=== PATIENT | male | born 1955 | race African-American/Black ===

== ENCOUNTER → 2016-11-08 | Outpatient (CLI) | payer OTHER ==
[~2016-11-08] MED LIST: ALBUTEROL17 GM INH; ASPIRIN PO; BENZONATATE PO; CIPRO PO; DIAZEPAM PO; DOXYCYCLINE HY100 M3 PO; DOXYCYCLINE PO; FLEXERIL PO; FLEXERIL10 M1 PO; FLEXERIL10 MG PO; HCTZ PO; IBUPROFEN PO; IBUPROFEN800 MG PO; KCL PO; LASIX20 MG PO; LISINOPRIL PO; LORTAB 10-5001 EACH PO; LORTAB 5/500 TA1 TA1 PO; MEDROL PO; METFORMIN PO; NEURONTIN300 MG PO; NORCO 10/325 TA1 TAB PO; NORMODYNE PO; NORVASC PO; PREDNISONE PO; PROZAC PO; ROBAXIN500 MG PO; ROBITUSSIN A-C S5 ML PO; VOLTAREN75 MG PO; ZANTAC PO
--- NOTE | ~2016-11-08 | US5 ---
[facility] A Service of [facility] & [facility] RADIOLOGY TEXT RESULTS PATIENT: GERTRUDIS RAI LOCATION: [facility] : 57 UNIT #: [id number] AGE: [address]: Piyush Lyles MD SEX: M ORDER DR: [id number] [facility] [address] [place], [place] [address] [id number] O MR#: [id number] #: [id number] NAME: GERTRUDIS RAI : 1955 SEX: M STUDY DATE/TIME: 11/08/2016 9:53 UNIT: [facility] ROOM: STUDY DESCRIPTION: US Abdominal Complete Attending Physician: Piyush Lyles III, M.D. Referring Physician: Piyush Lyles III, M.D. Ordering Physician: Piyush Lyles III, M.D. Primary Care Physician: Dagoberto Rivera M.D. MEDICAL IMAGING REPORT This report is preliminary unless electronic signature is present EXAM Abdominal ultrasound. INDICATIONS Hepatitis B and hepatitis C. Patient reports abdominal pain for 3 years. This is located bilaterally. TECHNIQUE [place]enport-scale, color Doppler and spectral Doppler waveform analysis was performed through the abdomen. FINDINGS There is a right renal cyst measuring 3.9 x 4.0 x 4.6 cm. It is simple in appearance with increased through transmission noted. There is no hydronephrosis. Liver is enlarged and steatotic and measured up to about 19.4 cm in length. The gallbladder is normal in appearance. No stones or sludge is seen. There is no gallbladder wall thickening or pericholecystic fluid. Main portal vein is patent. Hepatic veins are also patent. Pancreas cannot be seen due to overlying bowel gas. There is no intra or extrahepatic biliary dilatation. Spleen measures within normal size limits. Left kidney also contains a cyst, and this measures 3.6 x 3.3 x 4.1 cm. The distal aorta cannot be seen due to overlying bowel gas. IMPRESSION 1. Hepatomegaly and diffuse hepatic steatosis. 2. Bilateral renal cysts. Dictated by... Sophy Lantigua M.D. THIS IS AN ELECTRONICALLY VERIFIED REPORT [facility]. [facility] A Service of [facility] & [facility] RADIOLOGY TEXT RESULTS PATIENT: GERTRUDIS RAI LOCATION: [facility] #: [id number] : 57 UNIT #: [id number] AGE: [address]: Piyush Lyles MD SEX: M ORDER DR: Sophy Lantigua M.D. at 11/09/2016 2:50 PM AFF/jt TD: 11/08/2016 23:49 JOB #: [id number] MEDICAL IMAGING REPORT Page 1 of 1 COPY
== END | disposition home or self-care (01) ==
LOC: CGUS 09:13
DX: B18.1 Chronic viral hepatitis B without delta-agent (principal); K76.0 Fatty (change of) liver, not elsewhere classified; R16.0 Hepatomegaly, not elsewhere classified; N28.1 Cyst of kidney, acquired
CPT/HCPCS: 76700